=== PATIENT | female | born 1980 | race Caucasian/White ===

== ENCOUNTER 2018-06-03 10:34 | Emergency (ER) | payer OTHER ==
[~2018-06-03] VITALS: Ht 160 cm; Wt 125.2 kg
[~2018-06-03 10:34] MED LIST: FLEXERIL PO; FLOMAX0.4 MG PO; HYDROCODONE-AP1 EAC6 PO; IBUPROFEN 800800 MG PO; NORCO 5-325 TA1 EACH PO; SPIRONOLACTONE50 MG PO; VICODIN 5-5001 EACH PO; VICODIN ES TAB1 EACH PO; ZOLOFT
[2018-06-03] MEDS ORDERED: SERTRALINE HCL50 MG PO (10:50)
[2018-06-03] MEDS ORDERED: KEFLEX500 M1 PO (11:02)
[2018-06-03] MEDS ORDERED: BACTROBAN CREAM30 G1 TOP (11:02)
[2018-06-03 11:33] VITALS: BP 144/98
== END 2018-06-03 11:34 | disposition home or self-care (01) ==
LOC: M.ERS 10:34
DX: L03.211 Cellulitis of face (principal); L01.00 Impetigo, unspecified; J45.909 Unspecified asthma, uncomplicated; F32.9 Major depressive disorder, single episode, unspecified; Z90.49 Acquired absence of other specified parts of digestive tract; Z98.890 Other specified postprocedural states; Z88.1 Allergy status to other antibiotic agents

== ENCOUNTER 2021-01-11 15:53 | Emergency (ER) | payer OTHER ==
[~2021-01-11] VITALS: Ht 167.6 cm; Wt 117.9 kg
[~2021-01-11 15:53] MED LIST changes: +BACTROBAN CREAM30 G1 TOP; +KEFLEX500 M1 PO; +SERTRALINE HCL50 MG PO
[2021-01-11] MEDS ORDERED: PROAIR HFA8.5 GM INH (16:16)
[2021-01-11 16:56] LABS: ABSOLUTE LYMPHOCYTES 0.8 thou/uL (0.8-5.3); ABSOLUTE MONOCYTES 0.5 thou/uL (0.0-1.2); ABSOLUTE NEUTROPHILS 3.3 thou/uL (1.6-8.1); BASOPHILS 0.3 %; EOSINOPHILS 0.1 %; HEMATOCRIT 40.3 % (37.0-47.0); HEMOGLOBIN 14.1 gm/dL (12.0-15.0); LYMPHOCYTES 16.8 %; MCHC 34.9 g/dL (28.0-37.0); MCV 83.2 fL (80.0-100.0); MONOCYTES 10.1 %; MPV 9.5 fl. (7.2-11.1); NUCLEATED RBCS 0 /100WBC; PLATELET COUNT* 107 thou/uL (150-400); POLYS 72.7 %; RBC 4.84 mil/uL (4.20-5.00); RDW-CV 14.5 % (10.5-14.5); WBC 4.6 thou/uL (4.0-11.0)
[2021-01-11 17:03] LABS: CALCIUM 7.9 mg/dL (8.5-10.1); CREATININE 0.8 mg/dL (0.6-1.3); POTASSIUM 3.4 mmol/L (3.5-5.1)
[2021-01-11 17:08] LABS: ALBUMIN 3.3 g/dL (3.4-5.0); TOTAL BILIRUBIN 0.4 mg/dL (<0.1-1.0); TOTAL PROTEIN 7.2 g/dL (6.4-8.2)
[2021-01-11 18:25] LABS: URINE BILIRUBIN NEGATIVE (Negative); URINE BLOOD 3+ (Negative); URINE CLARITY CLEAR; URINE COLOR YELLOW; URINE GLUCOSE-RANDOM NEGATIVE (Negative); URINE KETONES NEGATIVE (Negative); URINE LEUKOCYTES-REFLEX NEGATIVE (Negative); URINE NITRITE-REFLEX NEGATIVE (Negative); URINE PROTEIN NEGATIVE (Negative); URINE SPECIFIC GRAVITY <= 1.005 (1.005-1.030); URINE UROBILINOGEN 0.2 E.U./dl (0.2-1.0)
[2021-01-11 18:33] LABS: BACTERIA-REFLEX 1-9 Few /HPF (None Seen); CASTS None Seen /LPF (None Seen); CRYSTALS None Seen /LPF (None Seen); SQUAMOUS 0-3 Few /LPF (0-3); URINE RBC 0-2 Rare /HPF (0-2); URINE WBC-REFLEX 0-5 Rare /HPF (0-5)
[2021-01-11] MEDS ORDERED: REGLAN 10 MG TA10 MG PO (20:37)
[2021-01-11 20:51] VITALS: BP 129/61
--- NOTE | 2021-01-12 09:49 | EKG ---
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
== END 2021-01-11 20:50 | disposition home or self-care (01) ==
LOC: M.ERS 15:53
PROVIDERS: Nurse Practitioner Family
DX: U07.1 COVID-19 (principal); R11.10 Vomiting, unspecified; J45.909 Unspecified asthma, uncomplicated; Z79.899 Other long term (current) drug therapy; Z90.49 Acquired absence of other specified parts of digestive tract